=== PATIENT | female | born 1975 | race Caucasian/White ===

== ENCOUNTER 2023-09-23 22:50 | Emergency (ER) | payer OTHER, SELFPAY ==
[2023-09-23 22:55] VITALS: BP 153/89; PULSE 85; RESP 17; TEMP 36.5; O2SAT 100
--- NOTE | 2023-09-23 22:59 | PC.NURSE ---
patient to desk and stated she was leaving. advised to come back if symptoms get worse.
== END 2023-09-23 22:55 | disposition left against medical advice (07) ==
LOC: ANHED 23:03
PROVIDERS: PCP Nurse Practitioner Family
DX: R10.12 Left upper quadrant pain (principal)
CPT/HCPCS: 99199

== ENCOUNTER 2023-09-24 13:33 | Emergency (ER) | payer OTHER, SELFPAY ==
--- NOTE | ~2023-09-24 | XR_ITS ---
EXAMINATION: XR chest 1V portable Exam Date/Time: 09/24/2023 16:00 CDT HISTORY: Left upper quadrant pain Comparison: None. RESULT: Lines, tubes, and devices: None. Lungs and pleura: Clear. Cardiomediastinal silhouette: Unremarkable. Other: No acute osseous or upper abdominal finding. IMPRESSION: No acute cardiopulmonary process. Reviewed, dictated and finalized at location K.
--- NOTE | ~2023-09-24 | CT_ITS ---
EXAMINATION: CT abdomen pelvis w con DATE: 09/24/2023 16:11 INDICATION: luq abdomen pain TECHNIQUE: Computed tomography (CT) of the abdomen and pelvis was performed with 100 mL Omnipaque-350 intravenous contrast. Automated exposure control and iterative reconstruction technique were employe d. The dose-length product was 593.84 mGy-cm. COMPARISON: None. FINDINGS: Lower thorax: Unremarkable Liver: Normal. Biliary/Gallbladder: Gallbladder is absent. No bile duct dilation. Pancreas: No mass or duct dilation. Spleen: Normal. Adrenals:No mass. Kidneys: No suspicious mass, obstructing stone, or hydronephrosis. GI tract: No small or large bowel dilation. Normal appendix. Mesentery/Peritoneum: No ascites, mass, or free air. Left upper abdominal varix extending from the sp lenic vein to the left renal and gonadal veins. Retroperitoneum: No mass. Pelvis: Distended urinary bladder without wall thickening. Normal uterus and left ovary. Punctate rig ht ovarian calcification. 2 cm simple right ovarian cyst. 1.2 cm simple right ovarian cyst or dominan t follicle. 2.5 cm indeterminate density right ovarian cyst. Soft Tissues: Soft tissues and body wall unremarkable. Bones: No acute osseous finding. IMPRESSION: Splenic varix, may indicate presence of portal hypertension. Otherwise no acute abdominopelvic process detected. 2.5 cm indeterminate density right ovarian cyst, may represent a hemorrhagic cyst or endometrioma. Co nsider nonemergent but timely outpatient pelvic ultrasound for further characterization. Reviewed, dictated and finalized at location K. IMPRESSION: Splenic varix, may indicate presence of portal hypertension. Otherwise no acute abdominopelvic process detected. 2.5 cm indeterminate density right ovarian cyst, may represent a hemorrhagic cy st or endometrioma. Consider nonemergent but timely outpatient pelvic ultrasoun d for further characterization.
[2023-09-24 13:37] VITALS: BP 163/87; PULSE 90; RESP 16; TEMP 36.9; O2SAT 100
--- NOTE | 2023-09-24 13:41 | ED.ABDPAIN ---
HPI - Abdominal Pain General Chief Complaint: Abdominal Pain Stated Complaint: left abd pain Time Seen by Provider: 09/24/23 13:43 Focused HPI: Dixie is a 47-year-old female patient presenting to the ER today with complaints of left upper quadrant abdominal pain x1 month. She reports that her primary care provider thinks her may be something going on with her pancreas. States her pain was a lot worse last night but states that her pain is a dull ache rating it a 3/10 that is constant at this time. Denies any nausea, vomiting, diarrhea, last bowel movement was this morning and was normal. Denies any urinary symptoms, vaginal discharge, or vaginal bleeding. Patient does take medications for high cholesterol, diabetes, high blood pressure, and depression General: Well-developed, well nourished, in no apparent distress. Head: Normocephalic, atraumatic. Cardio: Regular rate and rhythm, s1 and s2 normal, no murmur appreciated. Resp: Clear to auscultation bilaterally, no rhonchi, rales, wheezing or rubs. Abdomen: Soft, pliable, bowel sounds present in all quadrants,tender to palpation over the left upper quadrant, no organomegly, no CVAT tenderness. Patient screened in triage and initial orders placed. Additional care and disposition to be based upon diagnostic testing and treatment. Source: patient Mode of arrival: ambulatory Limitations: no limitations Related Data Home Medications Medication Instructions Recorded Confirmed blood-glucose meter,continuous 02/12/22 (Dexcom G6 Cutting Table Operator First) blood-glucose sensor (Dexcom G6 02/12/22 Sensor device) blood-glucose transmitter (Dexcom 02/12/22 G6 Transmitter device) bupropion HCl 300 mg 24 hr tablet, 300 mg PO QAM 02/12/22 extended release cyanocobalamin (vitamin B-12) 100 mcg subcut MONTHLY 02/12/22 1,000 mcg/mL injection solution dulaglutide 1.5 mg/0.5 mL 1.5 mg subcut WEEKLY 02/12/22 subcutaneous pen injector (Trulicity) dulaglutide 3 mg/0.5 mL 3 mg subcut WEEKLY 02/12/22 subcutaneous pen injector (Trulicity) escitalopram oxalate 20 mg tablet 20 mg PO DAILY 02/12/22 icosapent ethyl 1 gram capsule 2 g PO BID 02/12/22 (Vascepa) insulin glargine 100 unit/mL (3 10 unit subcut QPM 02/12/22 mL) subcutaneous pen (Lantus Solostar U-100 Insulin) metformin 500 mg tablet,extended 500 mg PO DAILY 02/12/22 release 24 hr metoprolol succinate 100 mg 100 mg PO DAILY 02/12/22 tablet,extended release 24 hr rosuvastatin 20 mg tablet 20 mg PO DAILY 02/12/22 Allergies Allergy/AdvReac Type Severity Reaction Status Date / Time No Known Allergies Allergy Verified 09/24/23 13:42 [facility] Past Medical History Medical History (Updated 09/25/23 @ 00:09 by Joon Villarreal) Anxiety Depression Diabetes type 2, controlled Herpesvirus 2 Hypertension Miscarriage (~04/24/03) Surgical History Surgical History (System 02/09/22 @ 10:09 by Cecilio Smallwood) History of cholecystectomy (~1993) History of dilation and curettage 04/24/2003 suction d&c--miscarriage History of knee surgery 1999, 2002 History of laparoscopy 1993, 1997, 2001, 2002--endometriosis/adenomyosis Family History Family History (System 02/09/22 @ 10:09 by Cecilio Smallwood) Father Heart disease Hypertension Mother Cerebrovascular accident Grandparent Breast cancer paternal grandmother Comments At the time of my signature, I reviewed and agree with the nursing past medical, surgical, social, and family history. There is no relevant family history pertinent to the patient complaint. Course Course Emergency Course: Portions of this record may have been created with voice recognition software. Vital Signs Vital signs: Vital Signs Temperature 36.9 C 09/24/23 13:37 Pulse Rate 90 09/24/23 13:37 Respiratory Rate 16 09/24/23 13:37 Blood Pressure 163/87 H 09/24/23 13:37 Pulse Oximetry 100 09/24/23 13:37 Oxygen Delivery Room Air
[2023-09-24 13:57] LABS: Basophils Percent Auto 0.6 % (0.2-1.2); Eosinophils Absolute Auto 0.1 K/mm3 (0-0.3); Eosinophils Percent Auto 1.7 % (0-4.4); Hematocrit 38.1 % (37.0-47.0); Hemoglobin 11.2 g/dL (12.0-15.0); Immature Granulocyte Absolute 0.01 K/mm3 (0.00-0.031); Immature Granulocyte Percent A 0.1 % (0-0.5); Lymphocytes Absolute Auto 2.49 K/mm3 (0.9-3.2); Lymphocytes Percent Auto 35.4 % (18.3-44.2); Mean Corpuscular HGB Conc 29.4 g/dl (32-36); Mean Corpuscular Hemoglobin 22.1 pg (26-34); Mean Corpuscular Volume 75.3 fl (80-100); Mean Platelet Volume 8.9 fl (7.4-10.4); Monocytes Absolute Auto 0.4 K/mm3 (0.1-0.6); Monocytes Percent Auto 5.7 % (2.6-8.5); Neutrophils Percent Auto 56.5 % (45.5-73.1); Platelet Count Result 439 k/mm3 (150-375); Red Blood Count 5.06 M/mm3 (4.2-5.4); Red Cell Distribution Width 17.6 % (11.5-14.5)
[2023-09-24 14:07] LABS: Alanine Aminotransferase 16 U/L (6-35); Albumin Level 4.2 g/dL (3.5-5.1); Alkaline Phosphatase 61 U/L (38-126); Anion Gap 6 mmol/L (4-12); Aspartate Amino Transferase 19 U/L (14-36); Bilirubin,Total 0.3 mg/dL (0.2-1.3); Blood Urea Nitrogen 11 mg/dL (7-17); Calcium 9.2 mg/dL (8.4-10.2); Carbon Dioxide 26 mmol/L (22-30); Chloride 102 mmol/L (98-107); Estimated CRCL calculation 87 ml/min; Estimated Glomerular Filt Rate > 60; Glucose 174 mg/dL (65-110); Lipase 83 U/L (23-300); Potassium 3.5 mmol/L (3.4-5.0); Sodium 134 mmol/L (137-145)
[2023-09-24 14:11] LABS: Appearance Urine Clear (Clear); Bilirubin Urine Negative (Negative); Blood Urine Negative (Negative); Color Urine Yellow (Yellow); Glucose Urine UA 3+ mg/dL (Negative); Ketones Urine Negative (Negative); Leukocyte Esterase Ur Negative LEU/UL (Negative); Nitrate Urine Negative (Negative); Protein Urine Negative (Negative); Urobilinogen Urine 0.2 mg/dL (<2.0); pH Urine 5.5 (5.0-9.0)
[2023-09-24 14:22] LABS: Platelet Estimate Increased (Adequate); Schistocytes None Seen
[2023-09-24 14:24] LABS: Add Urine Microscopic? NO; Specific Grav Ur 1.032 (1.001-1.035)
[2023-09-24 15:25] VITALS: BP 153/90; PULSE 83; RESP 16; O2SAT 97
--- NOTE | 2023-09-24 15:43 | ED.ABDPAIN ---
HPI - Abdominal Pain General Chief Complaint: Abdominal Pain Stated Complaint: left abd pain Time Seen by Provider: 09/24/23 13:43 Source: patient Mode of arrival: ambulatory Limitations: no limitations Related Data Home Medications Medication Instructions Recorded Confirmed blood-glucose meter,continuous 02/12/22 (Dexcom G6 Gun Stocker) blood-glucose sensor (Dexcom G6 02/12/22 Sensor device) blood-glucose transmitter (Dexcom 02/12/22 G6 Transmitter device) bupropion HCl 300 mg 24 hr tablet, 300 mg PO QAM 02/12/22 extended release cyanocobalamin (vitamin B-12) 100 mcg subcut MONTHLY 02/12/22 1,000 mcg/mL injection solution dulaglutide 1.5 mg/0.5 mL 1.5 mg subcut WEEKLY 02/12/22 subcutaneous pen injector (Trulicity) dulaglutide 3 mg/0.5 mL 3 mg subcut WEEKLY 02/12/22 subcutaneous pen injector (Trulicity) escitalopram oxalate 20 mg tablet 20 mg PO DAILY 02/12/22 icosapent ethyl 1 gram capsule 2 g PO BID 02/12/22 (Vascepa) insulin glargine 100 unit/mL (3 10 unit subcut QPM 02/12/22 mL) subcutaneous pen (Lantus Solostar U-100 Insulin) metformin 500 mg tablet,extended 500 mg PO DAILY 02/12/22 release 24 hr metoprolol succinate 100 mg 100 mg PO DAILY 02/12/22 tablet,extended release 24 hr rosuvastatin 20 mg tablet 20 mg PO DAILY 02/12/22 Allergies Allergy/AdvReac Type Severity Reaction Status Date / Time No Known Allergies Allergy Verified 09/24/23 13:42 [facility] Past Medical History Medical History (Updated 09/24/23 @ 17:16 by Marcus Echavarria MD) Anxiety Depression Diabetes type 2, controlled Herpesvirus 2 Hypertension Miscarriage (~04/24/03) Surgical History Surgical History (System 02/09/22 @ 10:09 by Cecilio Smallwood) History of cholecystectomy (~1993) History of dilation and curettage 04/24/2003 suction d&c--miscarriage History of knee surgery 1999, 2002 History of laparoscopy 1993, 1997, 2001, 2002--endometriosis/adenomyosis Family History Family History (System 02/09/22 @ 10:09 by Cecilio Smallwood) Father Heart disease Hypertension Mother Cerebrovascular accident Grandparent Breast cancer paternal grandmother Course Vital Signs Vital signs: Vital Signs Temperature 36.9 C 09/24/23 13:37 Pulse Rate 90 09/24/23 13:37 Respiratory Rate 16 09/24/23 13:37 Blood Pressure 163/87 H 09/24/23 13:37 Pulse Oximetry 100 09/24/23 13:37 Oxygen Delivery Room Air 09/24/23 13:37 Temperature 36.9 C 09/24/23 13:37 Pulse Rate 83 09/24/23 15:25 Respiratory Rate 16 09/24/23 15:25 Blood Pressure 153/90 H 09/24/23 15:25 Pulse Oximetry 97 09/24/23 15:25 Oxygen Delivery Room Air 09/24/23 13:37 MDM - Abdominal Pain MDM Narrative Medical decision making narrative: LEFT UPPER QUADRANT PAIN DIFFERENTIAL DIAGNOSIS SPLENIC DISORDER, CONSTIPATION, KIDNEY DISORDER, URINARY TRACT INFECTION BLOOD WORKUP TODAY SHOWED INSIGNIFICANT ABNORMALITY CT SCAN OF THE ABDOMEN AND PELVIS SHOWED SPLENIC VARIX WHICH COULD BE THE UNDERLYING CAUSE OF PATIENT'S SYMPTOMS. CURRENTLY PATIENT IS ASYMPTOMATIC FEELING OKAY TO GO HOME. OUTPATIENT FOLLOW-UP WITH DR. SALGUERO. FOR FURTHER EVALUATION Differential Diagnosis Differential diagnosis: Likely other ( ABOVE) Medical Records Attestation: I reviewed the patient's medical records. Lab Data Attestation: I reviewed the patient's lab results. 09/24/23 13:45 09/24/23 13:45 Labs: Lab Results 09/24/23 09/24/23 Range/Units 13:45 13:54 WBC 7.0 (4.5-10.0) K/mm3 RBC 5.06 (4.2-5.4) M/mm3 Hgb 11.2 L (12.0-15.0) g/dL Hct 38.1 (37.0-47.0) % MCV 75.3 L (80-100) fl MCH 22.1 L (26-34) pg MCHC 29.4 L (32-36) g/dl RDW 17.6 H (11.5-14.5) % Plt Count 439 H (150-375) k/mm3 MPV 8.9 (7.4-10.4) fl Immature Gran % (Auto) 0.1 (0-0.5) % Neut % (Auto) 56.5 (45.5-73.1) % Lymph % (Auto) 35.4 (18.3-44.2) % M
== END 2023-09-24 17:36 | disposition home or self-care (01) ==
PROVIDERS: Emergency Provider Emergency Medicine; PCP Internal Medicine Endocrinology, Diabetes & Metabolism
DX: I86.8 Varicose veins of other specified sites (principal); F41.9 Anxiety disorder, unspecified; F32.A Depression, unspecified; Z90.49 Acquired absence of other specified parts of digestive tract; Z79.4 Long term (current) use of insulin; Z79.84 Long term (current) use of oral hypoglycemic drugs; N83.201 Unspecified ovarian cyst, right side
CPT/HCPCS: 36415; 71045; 74177; 80053; 81003; 81025; 83690; 85025; 99284; Q9967

== ENCOUNTER 2024-03-12 07:59 | Outpatient (CLI) | payer OTHER, SELFPAY ==
--- NOTE | ~2024-03-12 | NM_ITS ---
EXAM: NM gastric emptying study DATE: 03/12/2024 12:22 INDICATION: Early satiety TECHNIQUE: A gastric emptying study was performed using the methodology of Shane LEHMAN, et al. J Nucl Med 2007; 48:568-572. The patient was given a meal consisting of 2 scrambled eggs labeled with 0.962 mCi Tc-99m sulfur colloid, 2 slices of toast, two packages of jam, and approximately 120 mL of water . Simultaneous anterior and posterior 1-min images of the abdomen were obtained with the patient supi ne were obtained at baseline immediately following ingestion. The patient did not return to complete the 1, 2 and 4 hour delayed imaging. COMPARISON: None. FINDINGS: Incomplete study with expected appearance of activity in the stomach on the initial baseline imaging. Patient did not return for subsequent imaging precluding assessment of gastric emptying. Reviewed, dictated and finalized at location B.
== END 2024-03-12 08:00 | disposition home or self-care (01) ==
PROVIDERS: PCP Family Medicine; Visit Provider Nurse Practitioner Family
DX: R68.81 Early satiety (principal); R11.2 Nausea with vomiting, unspecified; E11.9 Type 2 diabetes mellitus without complications; D64.9 Anemia, unspecified
CPT/HCPCS: 78264; A9541

== ENCOUNTER 2024-04-02 08:35 | Outpatient (CLI) | payer OTHER, SELFPAY ==
--- NOTE | ~2024-04-02 | MM_ITS ---
EXAMINATION: MM screening isael BI w jordin HISTORY: Screening TECHNIQUE: Craniocaudal and mediolateral oblique 3-D tomosynthesis images were obtained and synthetic 2-D images were generated. CAD analysis was submitted and interpreted. COMPARISON: No prior mammogram is available for comparison at this institution. BREAST PARENCHYMAL COMPOSITION: Not dense: There are scattered areas of fibroglandular density. FINDINGS: There is no evidence of suspicious mass, calcification, or architectural distortion to sugg est malignancy in either breast. There has been no suspicious interval change. IMPRESSION: 1. No mammographic evidence of malignancy. 2. Recommend routine screening mammography in one year. BI-RADS Category 1: Negative Reviewed, dictated and finalized at location B.
== END 2024-04-02 08:36 | disposition home or self-care (01) ==
LOC: ANHIMG 08:35
PROVIDERS: PCP Family Medicine; Visit Provider Obstetrics & Gynecology
DX: Z12.31 Encounter for screening mammogram for malignant neoplasm of breast (principal)
CPT/HCPCS: 77063; 77067

== ENCOUNTER 2024-04-14 02:56 | Day surgery (SDC) | payer OTHER, SELFPAY ==
--- NOTE | 2024-04-14 09:21 | WPDANESEPPF ---
Anes - Initial Pre Proc Eval Procedure: Operation Date: 04/14/24 10:30 Proposed Procedures p Esophagogastroduodenoscopy & Colonoscopy - Mango Wu MD Date/Time: 04/14/24 09:21 Surgeon: Mango Wu MD Pre Op Diagnosis: anemia, diarrhea, abd pain, early satiety Patient Data Age: 48 Gender: F Height: 1.65 m Weight: 82 kg Allergies Allergy/AdvReac Type Severity Reaction Status Date / Time No Known Allergies Allergy Verified 04/14/24 09:16 Home Medications Medication Instructions Recorded Confirmed Type cyanocobalamin (vitamin B-12) 100 mcg subcut WEEKLY 02/12/22 04/14/24 History 1,000 mcg/mL injection solution escitalopram oxalate 20 mg tablet 20 mg PO DAILY 02/12/22 04/14/24 History metoprolol succinate 100 mg 100 mg PO DAILY 02/12/22 04/14/24 History tablet,extended release 24 hr rosuvastatin 20 mg tablet 20 mg PO DAILY 02/12/22 04/14/24 History aspirin 81 mg tablet,delayed 81 mg PO DAILY #90 tabs 01/07/24 04/14/24 Rx release blood sugar diagnostic (OneTouch #100 ea 01/07/24 04/14/24 Rx Verio test strips) blood-glucose meter (OneTouch #1 ea 01/07/24 04/14/24 Rx Verio Flex Meter) blood-glucose sensor (Dexcom G7 #9 ea 01/07/24 04/14/24 Rx Sensor device) dapagliflozin propanediol 10 mg 10 mg PO QAM #90 tabs 01/07/24 04/14/24 Rx tablet (Farxiga) ferrous sulfate 325 mg (65 mg 325 mg PO DAILY #90 tabs 01/07/24 04/14/24 Rx iron) tablet (FeroSul) glimepiride 2 mg tablet 2 mg PO BIDWMEAL #180 tabs 01/07/24 04/14/24 Rx qnjhuf-pcpzkuvq-qjruzci 1 cap PO QID #360 caps 01/07/24 04/14/24 Rx 36,000-114,000-180,000 unit capsule,delay rel (Creon) losartan 25 mg tablet 25 mg PO DAILY #90 tabs 01/07/24 04/14/24 Rx metformin 500 mg tablet,extended 500 mg PO BID #180 tabs 01/07/24 04/14/24 Rx release 24 hr pen needle, diabetic 32 gauge x #100 ea 01/07/24 04/14/24 Rx (BD Ultra-Fine Lilibeth Pen Needle) blood sugar diagnostic (OneTouch #100 ea 01/14/24 04/14/24 Rx Ultra Test strips) blood-glucose meter (OneTouch #1 ea 01/14/24 04/14/24 Rx Ultra2 Meter) insulin detemir U-100 100 unit/mL 20 unit (0.2 mL) subcut QHS #30 mL 01/16/24 04/14/24 Rx (3 mL) subcutaneous pen (Levemir FlexPen) fenofibrate 54 mg tablet 54 mg PO DAILY #90 tabs 01/27/24 04/14/24 Rx omeprazole 40 mg capsule,delayed 40 mg PO BID #60 caps 02/06/24 04/14/24 Rx release tirzepatide 5 mg/0.5 mL 5 mg (0.5 mL) subcut WEEKLY #6 mL 02/18/24 04/06/24 Rx subcutaneous pen injector (Mounjaro) icosapent ethyl 1 gram capsule 2 g PO BID #360 caps 02/20/24 04/14/24 Rx (Vascepa) acyclovir 400 mg tablet 400 mg PO TID PRN fever blisters 04/06/24 04/14/24 History lancets 33 gauge (OneTouch Delica #100 ea 04/09/24 04/14/24 Rx Plus Lancet) Patient hx anesthesia problems: none Family hx anesthesia problems: none Results Review: All pre-operative results and documents have been reviewed as part of the pre-operative evaluation. [facility] Past Medical History Medical History Anxiety Depression Diabetes type 2, controlled Herpesvirus 2 Hypertension Miscarriage (~04/24/03) Surgical History Surgical History History of cholecystectomy (~1993) History of dilation and curettage 04/24/2003 suction d&c--miscarriage History of knee surgery 1999, 2002 History of laparoscopy 1993, 1997, 2001, 2002--endometriosis/adenomyosis Family History Family History Father Heart disease Hypertension Mother Cerebrovascular accident Grandparent Breast cancer paternal grandmother Social History Social History Smoking packs per day: 1 Smoking cigarettes per day: 20.0 Smoking status: Current every day smoker Tobacco type: cigarettes [place]
[2024-04-14 09:23] VITALS: BP 127/77; PULSE 90; RESP 17; TEMP 35.9; O2SAT 99; BMI 29.2
[2024-04-14] MEDS: LACTATED RINGERS 1,000 ML 150 ML IV CONT (09:31)
--- NOTE | 2024-04-14 09:50 | PM.HPGS ---
History of Present Illness History of Present Illness Consent: Risks, benefits, and alternatives have been discussed and questions answered. Patient agrees to proceed with procedure. Chief complaint: anemia, diarrhea, abd pain, early satiety Narrative: Dixie Baugh is a 48 year old female with gerd on ppi, nausea, intermittent abd pain, CT scan showed possible splenic varix, also EPI on creon, never had scopes. Review of Systems Review of Systems: All systems reviewed & are unremarkable except as noted in HPI and below PMFSH Past Medical History Medical History (Updated 04/14/24 @ 09:52 by Mango Wu MD) Anxiety Colon cancer screening Depression Diabetes type 2, controlled Herpesvirus 2 Hypertension Miscarriage (~04/24/03) Surgical History Surgical History History of cholecystectomy (~1993) History of dilation and curettage 04/24/2003 suction d&c--miscarriage History of knee surgery 1999, 2002 History of laparoscopy 1993, 1997, 2001, 2002--endometriosis/adenomyosis Family History Family History Father Heart disease Hypertension Mother Cerebrovascular accident Grandparent Breast cancer paternal grandmother Social History Social History Smoking packs per day: 1 Smoking cigarettes per day: 20.0 Smoking status: Current every day smoker Tobacco type: cigarettes Alcohol intake: never Do You Feel Safe in your Home?: Yes Lack of Transportation: No Lack of Food: Often True Current Housing: I Have Housing Concerned About Future Housing: No Difficulty Paying Gas/Electric Bills: No Difficulty Paying for Meds: No Currently Unemployed: Decline to Answer Education: Associate Degree Difficulty w/ Childcare or Family Care: No Living arrangements: with family Spiritual care concerns: No Meds Home Medications and Allergies Home Medications Medication Instructions Recorded Confirmed Type cyanocobalamin (vitamin B-12) 100 mcg subcut WEEKLY 02/12/22 04/14/24 History 1,000 mcg/mL injection solution escitalopram oxalate 20 mg tablet 20 mg PO DAILY 02/12/22 04/14/24 History metoprolol succinate 100 mg 100 mg PO DAILY 02/12/22 04/14/24 History tablet,extended release 24 hr rosuvastatin 20 mg tablet 20 mg PO DAILY 02/12/22 04/14/24 History aspirin 81 mg tablet,delayed 81 mg PO DAILY #90 tabs 01/07/24 04/14/24 Rx release blood sugar diagnostic (OneTouch #100 ea 01/07/24 04/14/24 Rx Verio test strips) blood-glucose meter (OneTouch #1 ea 01/07/24 04/14/24 Rx Verio Flex Meter) blood-glucose sensor (DexTuneUp G7 #9 ea 01/07/24 04/14/24 Rx Sensor device) dapagliflozin propanediol 10 mg 10 mg PO QAM #90 tabs 01/07/24 04/14/24 Rx tablet (Farxiga) ferrous sulfate 325 mg (65 mg 325 mg PO DAILY #90 tabs 01/07/24 04/14/24 Rx iron) tablet (FeroSul) glimepiride 2 mg tablet 2 mg PO BIDWMEAL #180 tabs 01/07/24 04/14/24 Rx skwtoc-xhjoloai-qzzjhko 1 cap PO QID #360 caps 01/07/24 04/14/24 Rx 36,000-114,000-180,000 unit capsule,delay rel (Creon) losartan 25 mg tablet 25 mg PO DAILY #90 tabs 01/07/24 04/14/24 Rx metformin 500 mg tablet,extended 500 mg PO BID #180 tabs 01/07/24 04/14/24 Rx release 24 hr pen needle, diabetic 32 gauge x #100 ea 01/07/24 04/14/24 Rx 5/32 (BD Ultra-Fine Lilibeth Pen Needle) blood sugar diagnostic (OneTouch #100 ea 01/14/24 04/14/24 Rx Ultra Test strips) blood-glucose meter (OneTouch #1 ea 01/14/24 04/14/24 Rx Ultra2 Meter) insulin detemir U-100 100 unit/mL 20 unit (0.2 mL) subcut QHS #30 mL 01/16/24 04/14/24 Rx (3 mL) subcutaneous pen (Levemir FlexPen) fenofibrate 54 mg tablet 54 mg PO DAILY #90 tabs 01/27/24 04/14/24 Rx omeprazole 40 mg capsule,delayed 40 mg PO BID #60 caps 02/06/24 04/14/24 Rx release tirzepatide 5 mg
--- NOTE | 2024-04-14 10:08 | SUR.OPER ---
EGD: start 957, ended 100, colon: Start 1005, end 101
[2024-04-14 10:09] LABS: BEDSIDEPREGUCG Negative (Negative)
[2024-04-14 10:16] VITALS: BP 131/75; PULSE 84; RESP 20; O2SAT 100
[2024-04-14 10:16] LABS: Glucose Point of Care 118 mg/dl (65-105)
[2024-04-14 10:26] VITALS: BP 124/70; PULSE 86; RESP 18; O2SAT 100
[2024-04-14 10:31] LABS: Glucose Point of Care 111 mg/dl (65-105)
[2024-04-14 10:36] VITALS: BP 145/84; PULSE 88; RESP 18; O2SAT 100
== END 2024-04-14 10:45 | disposition home or self-care (01) ==
PROVIDERS: Anesthesiology; PCP Nurse Practitioner Family; Referring Provider Nurse Practitioner Family; Visit Provider Internal Medicine Gastroenterology
PROC: 0DJ08ZZ Inspection of Upper Intestinal Tract, Via Natural or Artificial Opening Endoscopic (ICD-10-PCS; CPT 43235; principal; 2024-04-14 10:30)
DX: Z12.11 Encounter for screening for malignant neoplasm of colon (principal); K29.50 Unspecified chronic gastritis without bleeding; K21.9 Gastro-esophageal reflux disease without esophagitis; D64.9 Anemia, unspecified; K86.81 Exocrine pancreatic insufficiency; I10 Essential (primary) hypertension; E11.9 Type 2 diabetes mellitus without complications; F41.9 Anxiety disorder, unspecified; F32.A Depression, unspecified; F17.210 Nicotine dependence, cigarettes, uncomplicated; E66.9 Obesity, unspecified; Z68.29 Body mass index [BMI] 29.0-29.9, adult; Z79.82 Long term (current) use of aspirin; Z79.84 Long term (current) use of oral hypoglycemic drugs; Z79.4 Long term (current) use of insulin; Z79.85 Long-term (current) use of injectable non-insulin antidiabetic drugs; Z98.890 Other specified postprocedural states; Z90.49 Acquired absence of other specified parts of digestive tract; Z80.3 Family history of malignant neoplasm of breast; Z82.49 Family history of ischemic heart disease and other diseases of the circulatory system
CPT/HCPCS: 43239; 45378; 82948; 88305; J2704; J7120

== ENCOUNTER 2025-04-06 13:10 | Outpatient (CLI) | payer OTHER, SELFPAY ==
--- OUTSIDE RECORDS SUMMARY | 2024-05-09 16:00 | XMS_ITS ---
Author Organization [facility] Address [address] [place], [place] [address] Care Team Providers Care Fifth Hand Name Role Phone Lashawn Kemp Primary Care Provider Migration, Provider Unavailable Unavailable [facility]IS[facility] Encounter Medications Medication SIG (Take, Route, Frequency, Duration) Notes Start Date End Date Status Lantus SoloStar 100 UNIT/ML Solution Pen-injector inject up to 40 units subcutaneously daily; Duration: 90 days 09/10/2023 Active Icosapent Ethyl 1 G CAPSULE 2 CAP(S) ORALLY 2 TIMES A DAY; Duration: 90 DAYS *Please review and pick correct strength-formulati on from Wooop options. 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 If intended option is not shown, discontinue and re-order from Quick Search* *Pick strength-form from Medispan for eRX* Progress Notes * Dixie HELLERDOB:1975 (49 yo F)Acc No.[id number]:05/09/2024 Patient: Dixie Jones Provider: Heather Richey :1975 A ge:48 Y S ex:Female Date:05/09/2024 Phone: Address:[address] [place], [place] [phone] Pcp:Lashawn Kemp Subjective: * Chief Complaints: * M ult[facility] To [facility] Conversion Encounter Assessment: * Assessment: 1. T ype 2 diabetes mellitus with hyperglycemia - E11.65 2 . 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 H yperchylomicronemia Start Icosapent Ethyl CAPSULE, 1 G, 2 CAP(S), ORALLY, 2 TIMES A DAY, 90 DAYS, 360 CAPSULE, Refills 3, Notes to Pharmacist: *Please review and pick correct strength-formulation from Medispan options. If intended option is not shown, discontinue and re-order from Quick Search* *Pick strength-form from Medispan for eRX*. * Electronic signature of Prov ider Migration on 04/06/2025 at 02:59 PM CDT Sign off status: Pending * Provider: Heather Richey Date: 07/09/2023 Generated for Jeri duque/Nathaniel/Jimboitting on: 02:59 PM CDT
--- NOTE | ~2025-04-06 | XR_ITS ---
Examination: XR chest 2V Clinical History: R09.89 - Other specified symptoms and signs involving the... Comparison: 09/24/2023 Technique: PA and Lateral Findings: Cardiomediastinal silhouette normal size and configuration. Lungs clear. No acute bony abnormality. IMPRESSION: 1. No acute cardiopulmonary findings. Reviewed, dictated and finalized at location R.
--- OUTSIDE RECORDS SUMMARY | 2025-04-06 14:59 | XMS_ITS | Clinical Summary ---
Author Organization [facility] Address [address] [place] [address] Care Team Providers Care Systems Engineer Name Role Phone RothmanKapil SOUND CONTROLLER-SENIOR QUANTITY SURVEYOR Primary Care Provider Source Comments [facility],non-owned Affiliates and Associated Physician Practices is amultiple site organization consisting of ambulatory clinics and hospital sitesin [place], [place], [place] and [place]. This disclosure is being madepursuant to the Care Everywhere program and may not contain all information available regarding this patient. Last updated 18.[facility] Allergies No known active allergies Medications * Be aware that medications may not be up to date on this document. Alwaysverify current medications with the patient. Vit-Fe Fumarate-FA ( VITAMIN) 28-0.8 MG tablet Take 1 Tab by mouth once daily Active escitalopram (LEXAPRO) 20 MG tablet Take 20 mg by mouth once daily Active aspirin (ASPIRIN) 81 MG chew tablet Take 81 mg by mouth once daily Active zolpidem (AMBIEN) 10 MG tablet Take 10 mg by mouth nightly as needed for Insomnia Active HYDROcodone-ac etaminophen (NORCO) 5-325 MG tablet Take 1 Tab by mouth every 6 hours as needed for Pain Active insulin NPH (HUMULIN N; NOVOLIN N) vial Inject 15 Units subcutaneously 2 times daily,before breakfast and supper 16 units at HS, 16 units AM Active metFORMIN ER 24hr (GLUCOPHAGE XR) 500 MG tablet Take 1,000 mg by mouth at bedtime Active Insulin Syringe-Needle U-100 (BD ULTRAFINE 31 G X 6 MM 0.5 ML) 31G X 15/64 0.5 ML syringe Use one syringe for each injection--4 times per day. 120 Syringe 4 6 Active labetalol (NORMODYNE; TRANDATE) 200 MG tablet Take 1 Tab by mouth 2 times daily 60 Tab 5 7 Active acyclovir (ZOVIRAX) 400 MG tablet TK 1 T PO BID FOR 7 DAYS 6 7 Active Active Problems Problem Noted Date Diagnosed Date Tobacco smoking affecting 03/07/2016 AMA (advanced maternal age) multigravida 35+ 04/2016 Supervision of high risk in [facility] 02/02/2016 Type 2 diabetes mellitus complicating , antepartum 02/02/2016 Obesity complicating peripregnancy, antepartum 0 02/02/2016 Anxiety 02/02/2016 Chronic hypertension with ex acerbation during , antepartum 02/02/2016 Encounter for health-related screening 2 Overview (09/21/2017): 1st look done on 01/07/12 Result: 1:690 for DS and 1:18872 for Trisomy 18 2nd blood draw ideal dates: 02/03/12-02/17/12 Letter sent on 01/14/12 Final Result: IMO update 09 22 2017 Family History Medical History Relation Name Comments Hypertension Father Relation Name Status Comments Father Social History Tobacco Use Types Packs/Day Years Used Date Smoking Tobacco: Every Day Cigarettes Tobacco Cessation:Ready to Q uit: No; Counseling Given: Yes Alcohol Use Standard Drinks/Week Comments No 0 (1 standard drink = 0.6 oz pur e alcohol) Comments No Sex and Gender Information Value Date Recorded Sex Assigned at Not on file Legal Sex Female 1:51 PM SCIENTIFIC DIRECTOR Gender Identity Not on file Sexual Orientation Not on file Last Filed Vital Signs Vital Sign Reading Time Taken Comments Blood Pressure 149/86 08/14/2016 8:23 AM SCIENTIFIC DIRECTOR Pulse 83 08/14/2016 8:23 AM SCIENTIFIC DIRECTOR Temperature 36.8 C (98.2 F) 07/11/2016 3:30 PM SCIENTIFIC DIRECTOR Respiratory Rate 18 07/11/2016 4:40 PM SCIENTIFIC DIRECTOR Oxygen Saturation - - Inhaled Oxygen Concentration - - Weight 83.9 kg (185 lb) 07/11/2016 3:30 PM SCIENTIFIC DIRECTOR Height 165.1 cm (5' 5) 07/11/2016 3:30 PM SCIENTIFIC DIRECTOR Body Mass Index 30.79 07/11/2016 3:30 PM SCIENTIFIC DIRECTOR Plan of Treatment Health Maintenance Due Date Last Done Comments COLOGUARD (AGES 45-75) - COL ON CA SCREENING 1974 COLON MONITORING 1974 COLONOSCOPY - COLON CA SCREENING 1974 CT COLONOGRAPHY - COLON CA SCREENING 1974 Colorectal Cancer Screening 1974 FIT - COLON CA SCREENING 1974 FLEX SIG - COLON CA SCREENING 1974 LIPID TESTING 1974 MAMMOGRAM 1974 HIV SCREENING 1989 HEPATITIS C SCREENING 11/28/1992 DTAP/TDAP/TD VACCINES (1 - Tdap) 1993 HEPATITIS B VACCINE (1 of 3 - 19+ 3-dose series) 1993 PNEUMOCOCCAL VACCINE 50+ (1 of 2 - PCV) 1993 PAP SMEAR 12/04/1995 DEPRESSION SCREENING 06/24/2024 ZOSTER VACCINE (1 of 2) 2024 COVID-19 VACCINE (1 - 2023-2 5 season) 2025 INFLUENZA VACCINE (#1) 2025 HIB VACCINE Aged Out No longer eligi ble based on patient's age to complete this topic HPV VACCINE Aged Out No longer eligi ble based on patient's age to complete this topic MENINGOCOCCAL (Group B) VACC INE SHARED DECISION-MAKING Aged Out No longer eligibl e based on patient's age to complete this topic MENINGOCOCCAL GROUPS A/C/Y/W VACCINE Aged Out No longer eligible b ased on patient's age to complete this topic Insurance [facility] SELF PAY NO INSURANCE Member Subscriber Plan / Payer (Ef fective for All Dates) Name:Vanessa Heller Member ID:Not on file Relation to Subscriber:Not on file Name:VANESSA HELLER Subscriber ID:Not on file (Home) Address: [address] [address] Payer ID:Not on file Group ID:Not on file Type:Self Pay Address: [place], [place] Advance Directives * Full Code (Latest Code Status on File) Date Activated Date Inactivated Comments 07/11/2016 3:15 PM 07/11/2016 5:50 PM Care Teams Systems Engineer Relationship Specialty Start Date End Date Kapil Rothman, SOUND CONTROLLER-SENIOR QUANTITY SURVEYOR [address] [place] [address] PCP - General Nurse Practitioner Family 02/02/16
--- OUTSIDE RECORDS SUMMARY | 2025-04-06 14:59 | XMS_ITS | Patient Health Record ---
Author Organization [facility] Address [address] [place], [place] [address] Care Team Providers Care Vp Foundation Name Role Phone Lashawn Kemp Primary Care Provider Migration, Provider Unavailable Unavailable Allergies No Known Allergies Reason For Referral No Information Medications Medication SIG (Take, Route, Frequency, Duration) Notes Start Date End Date Status Vascepa 1 GM Capsule 2 capsules with meals Orally Twice a day; Duration: 30 days 09/10/2024 Active Lantus SoloStar 100 UNIT/ML Solution Pen-injector inject up to 40 units subcutaneously daily; Duration: 90 days 09/10/2023 Active Icosapent Ethyl 1 G CAPSULE 2 CAP(S) ORALLY 2 TIMES A DAY; Duration: 90 DAYS *Please review and pick correct strength-formulati on from [facility] options. If intended option is not shown, discontinue and re-order from Quick Search* *Pick strength-form from [facility] for eRX* 09/10/2023 Active Social History Social History Additional Details Category Social Info Options Details Migrated Social History Migrated Social History (Smoking:):yes Section Notes: one pack a day Problems Problem Type SNOMED Code ICD Code Onset Dates Problem Status W/U Status Risk Notes Problem Hyperglycemia due to type 2 diabetes mellitus (026439176895291) Type 2 diabetes mellitus with hyperglycemia (E11.65) Active confirmed Problem Type II diabetes mellitus without complication (521114959) Type 2 diabetes mellitus without complications (E11.9) Active confirmed Problem 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 [address] [place] [address] 09/10/2024 Lashawn Kemp [address] [address] 09/10/2024 Lashawn Kemp [id number] [place] [address] 11/18/2024 Lashawn Kemp Assessments Encounter Date Diagnosis (ICD Code) Assessment Notes Treatment Notes Treatment Clinical Notes Section Notes 05/09/2024 Type 2 diabetes alondra itus with hyperglycemia (ICD-10 - E11.65) 05/09/2024 Hyperchylomicronemia (ICD-10 - E78.3) Plan Of Treatment Pending Test Test Name Order Date CT Scan: Abdomen Pelvis W contrast 09/04 Medical (General) History Medical History History ICD Code hypertension diabetes
--- OUTSIDE RECORDS SUMMARY | 2025-04-06 14:59 | XMS_ITS | Clinical Summary ---
Author Organization [facility] [address] Address [address] [place] [address] Care Team Providers Care Assayer Name Role Phone Law Mccloud NP Primary Care Provider [phone] Allergies No known active allergies Medications aspirin 81 mg enteric coated tablet Take 1 tablet (81 mg total) by mouth daily 09/12/19 24 Active OneTouch Verio test strips strip USE TO TEST BLOOD SUGARS FOUR TIMES DAILY 10/02/19 24 Active Dexcom G7 Steward/Stewardess Third misc as directed 09/06/19 24 Active Dexcom G6 Sensor device APPLY SENSOR TO SKIN AND CHANGE EVERY 10 DAYS 10/18/19 24 Active Dexcom G6 Transmitter device CHANGE EVERY 90 DAYS 09/13/19 24 Active cyanocobalamin (Vitamin B-12) 1,000 mcg/mL injection ADMINISTER 1 ML UNDER THE SKIN EVERY WEEK IN THE MORNING 10/08/19 24 Active Farxiga 10 mg tablet Take 1 tablet (10 mg total) by mouth every morning 10/23/19 24 Active Trulicity 3 mg/0.5 mL pen injector INJECT 3 MG SUBCUTANEOUS EVERY WEEK AT DINNER 09/18/19 24 Active Trulicity 4.5 mg/0.5 mL pen injector ADMINISTER 4.5 MG UNDER THE SKIN EVERY WEEK 09/05/19 24 Active fluconazole (DIFLUCAN) 150 mg tablet 10/11/19 24 Active glimepiride (AMARYL) 2 mg tablet Take 2 tablets (4 mg total) by mouth 09/05/19 24 Active LANTUS 100 unit/mL (3 mL) pen for injection 10/30/19 24 Active Creon 36,000-114,000- 180,000 unit capsule Take 1 capsule by mouth 3 (three) times a day 10/03/19 24 Active losartan (COZAAR) 25 mg tablet Take 1 tablet (25 mg total) by mouth daily 09/05/19 24 Active metFORMIN XR (GLUCOPHAGE XR) 500 mg 24 hr tablet Take 2 tablets (1,000 mg total) by mouth daily 10/30/19 24 Active metoprolol XL (TOPROL-XL) 100 mg 24 hr tablet Take 1 tablet (100 mg total) by mouth daily 08/08/19 24 Active omeprazole (PriLOSEC) 20 mg capsule Take by mouth daily 10/11/19 24 Active rosuvastatin (CRESTOR) 20 mg tablet Take 1 tablet (20 mg total) by mouth daily 09/05/19 24 Active insulin syringe-needle U-100 1 mL 31 gauge x 5/16 syringe USE DIRECTED FOR B12 09/12/19 24 Active traZODone (DESYREL) 100 mg tablet Take 1 tablet (100 mg total) by mouth 2 (two) times a day 08/20/19 24 Active acyclovir (ZOVIRAX) 400 mg tablet TK 1 T PO BID FOR 7 DAYS 07/04/19 17 Active escitalopram (LEXAPRO) 20 mg tablet Take 1 tablet (20 mg total) by mouth daily Active HYDROcodone-leatha taminophen (NORCO) 5-325 mg per tablet Take 1 tablet by mouth every 6 (six) hours as needed Active zolpidem (AMBIEN) 10 mg tablet Take 1 tablet (10 mg total) by mouth nightly as needed Active labetaloL (NORMODYNE,HERNANDEZ DATE) 200 mg tablet Take 1 tablet (200 mg total) by mouth 2 (two) times a day 07/11/19 17 Active insulin NPH (HumuLIN N, NovoLIN N) 100 unit/mL vial for injection Inject 15 Units under the skin Active promethazine-DM (PROMETHAZINE-D M) 1.25-3 mg/mL syrup Take 5 mL by mouth every 4 (four) hours as needed for cough 120 mL 12/20/19 24 Active fenofibrate (TRICOR) 54 mg tablet Take 1 tablet (54 mg total) by mouth daily 01/27/20 24 Active Levemir FlexPen 100 unit/mL (3 mL) pen for injection INJECT 20 UNITS SUBCUTANEOUSLY EVERY DAY AT BEDTIME 01/16/20 24 Active Mounjaro 2.5 mg/0.5 mL pen injector ADMINISTER 2.5 MG UNDER THE SKIN WEEKLY FOR 4 WEEKS 02/20/20 24 Active benzonatate (TESSALON) 200 mg capsuleIndicati ons:Bronchitis Take 1 capsule (200 mg total) by mouth 3 (three) times a day as needed for cough 30 capsule 02/21/20 24 Active albuterol HFA (PROVENTIL HFA,VENTOLIN HFA,PROAIR HFA) 90 mcg/actuation inhalerIndicati ons:Bronchitis Inhale 2 puffs every 6 (six) hours as needed for wheezing or shortness of breath 1 each 02/21/20 24 Active amoxicillin-cla vulanate (Augmentin) 875-125 mg per tablet Take 1 tablet by mouth 2 (two) times a day 20 tablet 06/27/19 25 Active Active Problems Problem Noted Date Diagnosed Date Tobacco smoking affecting 03/07/2016 AMA (advanced maternal age) multigravida 35+ 04/2016 Anxiety 02/02/2016 Chronic hypertension with ex acerbation during , antepartum 02/02/2016 Obesity complicating peripregnancy, antepartum 0 02/02/2016 Supervision of high risk in [facility] 02/02/2016 Type 2 diabetes mellitus complicating , antepartum 02/02/2016 Social History Tobacco Use Types Packs/Day Years Used Date Smoking Tobacco: Never Assessed Personal Safety Answer Date Recorded Getting School Help Needed Not on file 07/02 Comments Unknown Sex and Gender Information Value Date Recorded Sex Assigned at Not on file Legal Sex Female 2:58 AM WATER PLANT MAINTENANCE MECHANIC Gender Identity Not on file Sexual Orientation Not on file Obstetrics History Last Filed Vital Signs Vital Sign Reading Time Taken Comments Blood Pressure 128/80 02/21/2024 11:35 AM CDT Pulse 80 02/21/2024 11:35 AM CDT Temperature 37 C (98.6 F) 02/21/2024 11:35 AM CDT Respiratory Rate 20 02/21/2024 11:35 AM CDT Oxygen Saturation 100% 02/21/2024 11:35 AM CDT Inhaled Oxygen Concentration - - Weight 76.7 kg (169 lb) 02/21/2024 11:35 AM CDT Height 165.1 cm (5' 5) 02/21/2024 11:35 AM CDT Body Mass Index 28.12 02/21/2024 11:35 AM CDT Plan of Treatment Health Maintenance Due Date Last Done Comments Breast Cancer Screening-Mammogram 1974 Cervical Cancer Screening 1974 Colon Cancer Screening-Colonoscopy 1974 Depression Screening 1974 Hepatitis C Screening 1974 Hepatitis B Screening 1992 Regular Well Visit/Exam 18-64 1992 Zoster Vaccine (1 of 2) 2024 Covid-19 Vaccine (2 - 2024-2 6 season) 2025 11/03/2020 Influenza Vaccine (#1) 2025 DTaP/Tdap/Td Vaccine (2 - Td or Tdap) 08/17/2026 08/17/2016 Pneumococcal vaccine <65 Aged Out No longer eligible based on patient's age to complete this topic Insurance [facility] Care Teams Assayer Relationship Specialty Start Date End Date Law Mccloud, RIM FIRE CHARGER OPERATOR [address] [place] [address] PCP - General Family Medicine 12/19/23
== END 2025-04-06 13:11 | disposition home or self-care (01) ==
PROVIDERS: PCP Emergency Medicine; Visit Provider Emergency Medicine
DX: R09.89 Other specified symptoms and signs involving the circulatory and respiratory systems (principal)
CPT/HCPCS: 71046